=== PATIENT | male | born 1985 | race Caucasian/White ===

== ENCOUNTER 2020-10-28 17:47 | Emergency (ER) | payer BC, SELFPAY ==
[2020-10-28 18:20] VITALS: BP 138/95; PULSE 104; RESP 20; TEMP 36.4; O2SAT 100
[2020-10-28 19:33] VITALS: BP 142/98; PULSE 112; RESP 18; TEMP 36.7; O2SAT 100
--- NOTE | 2020-10-28 19:45 | ED.GENADULT ---
HPI - General Adult General Chief complaint: Wound/Laceration Stated complaint: forearm lac Time Seen by Provider: 10/28/20 19:42 History of Present Illness HPI narrative: Patient is a otherwise healthy 35-year-old male who comes to the emergency room today complaining of a laceration to the Distal ulnar left forearm. Patient reports that just prior to arrival he was working on a car when his hand slipped and a piece of metal punctured his left forearm. Patient reports that he immediately came to the emergency room. He denies any numbness or tingling. He is able to move his left hand and wrist without difficulty and full range of motion. Denies any pulsatile/squirting bleeding. He is not on any blood thinners. He thinks last tetanus was 2 years ago but he is not for sure. No other symptoms or concerns. Says it is not possible for any piece of the car to be in his arm. Related Data Allergies Allergy/AdvReac Type Severity Reaction Status Date / Time No Known Allergies Allergy Unverified 10/21/17 18:18 Review of Systems Constitutional: Constitutional: Reports as per HPI, Denies fever(s), Denies night sweats and Denies weakness Cardiovascular: Cardiovascular: Denies chest pain, Denies edema, Denies leg edema, Denies dyspnea and Denies orthopnea Respiratory: Respiratory: Denies cough and Denies dyspnea Gastrointestinal: Gastrointestinal: Denies abdominal pain, Denies constipation, Denies diarrhea, Denies nausea and Denies vomiting Musculoskeletal: Musculoskeletal: Denies abnormal gait, Denies back pain, Denies numbness and Denies tingling Integumentary/Breasts: Comments: See HPI Neurologic: Denies Abnormal speech present, Denies abnormal gait, Denies numbness, Denies tingling and Denies weakness Psychiatric: Psychiatric: Denies homicidal ideation and Denies suicidal ideation [facility] Family History Family History (Updated 02/16/16 @ 23:21 by DOCTOR UNKNOWN) Mother Patient's mother is in good health Father Patient's father is in good health Sibling Patient's sister is in good health Patient's brother is in good health Social History Social History Smoking status: Current every day smoker Gender identity (if verbalized by the patient): Female Exam Const: General: cooperative, healthy appearing, comfortable, no acute distress, well developed, alert, awake and Physically active Orientation/consciousness: patient oriented x3 HENMT: Head: normal to inspection, normocephalic and atraumatic Ears: external ears normal General nose exam: Normal external nose present Eyes: Pupils: Equal, round and reactive pupils present EOM: EOMs intact bilaterally Neck: Neck: normal visual inspection Chest: Chest palpation & inspection: normal inspection of the chest and no tenderness Resp: Effort & Inspection: normal respiratory effort and able to speak in complete sentences Auscultation: clear to auscultation bilaterally Cardio: Rate: regular rate Rhythm: regular rhythm GI: Inspection: normal to inspection GI Palp: No abdominal tenderness : General: Yes no CVA tenderness Back/Spine/Pelvis: Back: no CVA tenderness Skin: General skin exam: normal color and no rashes or lesions noted Lesions: no lesions Other: Distal ulnar aspect left forearm approximately 5 cm proximal to the wrist there is a vertical laceration that is approximately 3 cm in length. Bleeding is controlled. No foreign bodies. Range of motion and strength in left hand and wrist, neurovascular intact throughout. Neuro: General: patient oriented x3, no focal motor deficits and CN's II-XI intact bilaterally Cranial nerves: Yes Equal, round and reactive pupils present Speech: No Abnormal speech present Extrem: General: normal to inspection and full ROM Psych: Appearance: grossly normal and well kempt Mental Status: mental status grossly normal Speech and movement: Normal speech and movement present Affect: normal affect Thought process: No
[2020-10-28] MEDS: TETANUS,DIPHTHERIA,AC PERTUSSIS ADULT (0.5 ML) BOOSTRIX IM (21:40)
== END 2020-10-28 21:43 | disposition home or self-care (01) ==
PROVIDERS: Emergency Provider Emergency Medicine
DX: S51.812A Laceration without foreign body of left forearm, initial encounter (principal); F17.200 Nicotine dependence, unspecified, uncomplicated; W26.8XXA Contact with other sharp object(s), not elsewhere classified, initial encounter; Z23 Encounter for immunization
CPT/HCPCS: 12002; 90471; 90715; 99283

== ENCOUNTER 2023-08-17 16:19 | Emergency (ER) | payer OTHER, MEDICAID, SELFPAY ==
[2023-08-17 16:42] VITALS: BP 142/84; PULSE 89; RESP 20; TEMP 36.6; O2SAT 100
== END 2023-08-17 22:23 | disposition left against medical advice (07) ==
LOC: ANHED 21:28
DX: R10.9 Unspecified abdominal pain (principal)
CPT/HCPCS: 99199

== ENCOUNTER 2025-06-20 09:32 | Emergency (ER) | payer SELFPAY ==
--- NOTE | ~2025-06-20 | XR_ITS ---
XR elbow LT min 3V 06/20/2025 11:07 INDICATION: Left elbow pain PROCEDURE: 4 views left elbow COMPARISON: No prior studies for comparison. FINDINGS: Fracture, dislocation or subluxation is not identified. The soft tissues appear within normal limits. No foreign bodies are identified. IMPRESSION: 1: NO ACUTE BONE OR JOINT ABNORMALITY IDENTIFIED. Reviewed, dictated and finalized at location I. 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
--- NOTE | ~2025-06-20 | CT_ITS ---
EXAMINATION: CT elbow LT w con DATE: 06/20/2025 12:35 INDICATION: Left elbow infection from needlestick TECHNIQUE: High resolution computed tomography (CT) of the left elbow was performed with 100 mL Omnipaque-350 intravenous contrast. Additional sagittal and coronal reconstructions were performed. Automated exposure control and iterative reconstruction technique were employed. The dose-length product was 512.54 mGy-cm. COMPARISON: None FINDINGS: Bone alignment is normal. No fractures. No cortical erosions or periosteal reaction to suggest ostomy myelitis. No joint effusion. Gas and fluid within a small peripheral enhancing abscess is subcutaneous tissues at the left antecubital fossa. The abscess measures 3.0 cm in length and 12 x 10 mm in max imal transaxial dimensions. The abscess appears centered along the left cephalic vein likely secondary to thrombophlebitis related to reported needlestick. There appears be disruption of the posterior radial wall of the abscess with minimal amount of nonloculated fluid and gas in the deep subcutaneous fat along the anterior margin of the brachial radialis muscle is mild hyperemia along the underlying anterior margin of the brachioradialis muscle without deeper abscess or gas within the muscular compartments. There is thrombus extending along the more distal left cephalic and intermediate (median) antebrachial veins. There is additional occlusion/thrombosis of the left radial vein in the mid forearm. IMPRESSION: 1. 3.0 x 1.2 x 1.0 cm gas and fluid containing abscess at the antecubital fossa likely arising from a cephalic vein thrombophlebitis related to reported needlestick. Reviewed, dictated and finalized at location A. DITER SERVICE ORDER IMPRESSION: 1. 3.0 x 1.2 x 1.0 cm gas and fluid containing abscess at the antecubital fossa likely arising from a cephalic vein thrombophlebitis related to reported needl estick.
[2025-06-20 09:34] VITALS: BP 135/97; PULSE 118; RESP 16; TEMP 36.4; O2SAT 100
--- NOTE | 2025-06-20 11:11 | ED_ITS ---
HPI - General Adult General Chief complaint: Extremity Problem,Nontraumatic <IRAIS Rodriguez - Last Filed: 06/20/25 18:34> Stated complaint: abcess to left arm <IRAIS Rodriguez Last Filed: 06/20/25 18:34> Time Seen by Provider: 06/20/25 10:30 <IRAIS Rodriguez Last Filed: 06/20/25 18:34> History of Present Illness HPI narrative: 39-year-old male presenting after a needlestick that occurred 3 days ago in his right AC. Patient reports he is a methamphetamine user and that the needle was on room air. He reports subjective fevers/chills as of today as well as pain extending toward the wrist and the shoulder. Denies numbness/tingling. <IRAIS Rodriguez Last Filed: 06/20/25 18:34> Related Data Allergies/adverse reactions: Allergies Allergy/AdvReac Type Severity Reaction Status Date / Time No Known Allergies Allergy Verified 06/20/25 09:38 <IRAIS Rodriguez Last Filed: 06/20/25 18:34> Review of Systems 2 Review of Systems: All systems reviewed & are unremarkable except as noted in HPI and below <IRAIS Rodriguez Last Filed: 06/20/25 18:34> [facility] Family History Family History: Family History (Updated 02/16/16 @ 23:21 by DOCTOR UNKNOWN) Mother Patient's mother is in good health Father Patient's father is in good health Sibling Patient's sister is in good health Patient's brother is in good health <IRAIS Rodriguez Last Filed: 06/20/25 18:34> Social History Social History: Social History Smoking status: Current every day smoker Gender identity (if verbalized by the patient): Female <IRAIS Rodriguez Last Filed: 06/20/25 18:34> Exam 2 Narrative: GENERAL: No acute distress. HEAD: Normocephalic, atraumatic. EYES: PERRLA and EOMI. ENT: Nares clear, no rhinorrhea or epistaxis. Mucous membranes moist. Oropharynx without tonsillar hypertrophy exudate or other lesions. Bilateral TMs pearly mann non-bulging NECK: Supple. No adenopathy or masses. No carotid bruits or JVD CHEST: Clear to auscultation. No respiratory distress. No wheezes rales or rhonchi HEART: Regular rhythm, mild tachycardia. No murmur heard. Normal peripheral pulses. ABDOMEN: Soft, nontender, nondistended, normal active bowel sounds. EXTREMITIES: L elbow ROM slightly limited. L elbow AC region with a palpable, firm, tender, circular area approximately 2x2 cm, extending superiorly and inferiorly, with overlying erythema. 5/5 strength. SKIN: Warm, dry, no rash. NEURO: No focal deficits. Alert and oriented x3. 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 Patient is IV drug user, bedside ultrasound performed by myself and PA does show abscess unfortunately with vascular involvement, therefore I do not feel comfortable draining this and do feel he needs vascular surgery. He is transferred and accepted at [facility] <Kalee Berrios MD - Last Filed: 06/20/25 18:50> Vital Signs Vital signs: Vital Signs Temperature 97.5 F L 06/20/25 09:34 Pulse Rate 118 H 06/20/25 09:34 Respiratory Rate 16 06/20/25 09:34 Blood Pressure 135/97 H 06/20/25 09:34 Pulse Oximetry 100 06/20/25 09:34 Oxygen Delivery Room Air 06/20/25 09:34 Temperature 97.5 F L 06/20/25 18:09 Pulse Rate 90 06/20/25 18:09 Respiratory Rate 16 06/20/25 18:09 Blood Pressure 128/97 H 06/20/25 18:09 Pulse Oximetry 100 06/20/25 18:09 Oxygen Delivery Room Air 06/20/25 09:34 <IRAIS Rodriguez - Last Filed: 06/20/25 18:34> Vital Signs Temperature 97.5 F L 06/20/25 09:34 Pulse Rate 118 H 06/20/25 09:34 Respiratory Rate 16 06/20/25 09:34 Blood Pressure 135/97 H 06/20/25 09:34 Pulse Oximetry 100 06/20/25 09:34 Oxygen Delivery Room Air 06/20/25 09:34 Temperature 97.5 F L 06/20/25 18:09 Pulse Rate 90 06/20/25 18:09 Respiratory Rate 16 06/20/25 18:09 Blood Pressure 128/97 H 06/20/25 18:09 Pulse Oximetry 100 06/20/25 18:09 Oxygen Delivery Room Air 06/20/25 09:34 <Kalee Berrios MD - Last Filed: 06/20/25 18:50> Medical Decision Making MDM Narrative Medical decision making narrative: 39-year-old male presenting after a needlestick that occurred 3 days ago in his right AC. Patient reports he is a methamphetamine user and that the needle was on room air. He reports subjective fevers/chills as of today as well as pain extending toward the wrist and the shoulder. Denies numbness/tingling. Upon my initial assessment patient appears nontoxic with infectious findings to his left elbow AC region consistent with localized abscess secondary to recent needlestick. No fluctuance appreciated at this time. X-ray demonstrates no leftover foreign bodies. CT demonstrates a 3.0 x 1.2 x 1.0 cm gas and fluid containing abscess at the antecubital fossa likely arising from a cephalic vein thrombophlebitis related to reported needlestick. Bedside US corroborated these findings. Began vancomycin. Labs demonstrate mild leukocytosis as 13.8 and a CRP elevated at 7.8. Other labs WNL. Blood cultures pending. Patient was tachycardic in triage at 118 but sat around 98 during my initial assessment and was afebrile. On reevaluation patient is mildly diaphoretic endorsing generalized malaise. Initially spoke with [facility] vascular surgery who then advised contacting general surgery. General surgeon Dr. Ramos through [facility] accepted the patient. Discussed with hospitalist Dr. Dwyer patient presentation and workup. Agrees with transfer and admission at this time. Patient agrees with discussion and after shared medical decision making agrees with plan of care. All questions were answered to the patient's satisfaction. Pending transfer. <IRAIS Rodriguez - Last Filed: 06/20/25 18:34> Medical Records Medical records reviewed: Yes I reviewed the external patient's medical records. <IRAIS Rodriguez - Last Filed: 06/20/25 18:34> Vital Signs Vital Signs: Vital Signs Temperature 97.5 F L 06/20/25 09:34 Pulse Rate 118 H 06/20/25 09:34 Respiratory Rate 16 06/20/25 09:34 Blood Pressure 135/97 H 06/20/25 09:34 Pulse Oximetry 100 06/20/25 09:34 Oxygen Delivery Room Air 06/20/25 09:34 Temperature 97.5 F L 06/20/25 18:09 Pulse Rate 90 06/20/25 18:09 Respiratory Rate 16 06/20/25 18:09 Blood Pressure 128/97 H 06/20/25 18:09 Pulse Oximetry 100 06/20/25 18:09 Oxygen Delivery Room Air 06/20/25 09:34 <IRAIS Rodriguez - Last Filed: 06/20/25 18:34> Vital Signs Temperature 97.5 F L 06/20/25 09:34 Pulse Rate 118 H 06/20/25 09:34 Respiratory Rate 16 06/20/25 09:34 Blood Pressure 135/97 H 06/20/25 09:34 Pulse Oximetry 100 06/20/25 09:34 Oxygen Delivery Room Air 06/20/25 09:34 Temperature 97.5 F L 06/20/25 18:09 Pulse Rate 90 06/20/25 18:09 Respiratory Rate 16 06/20/25 18:09 Blood Pressure 128/97 H 06/20/25 18:09 Pulse Oximetry 100 06/20/25 18:09 Oxygen Delivery Room Air 06/20/25 09:34 <Kalee Berrios MD - Last Filed: 06/20/25 18:50> Lab Data Lab results reviewed: Yes I reviewed the patient's lab results. <IRAIS Rodriguez - Last Filed: 06/20/25 18:34> Result diagrams: 06/20/25 11:11 06/20/25 11:11 <IRAIS Rodriguez - Last Filed: 06/20/25 18:34> Labs: Lab Results 12/01/25 12/01/25 Range/Units 11:11 13:52 WBC 13.8 H (4.5-10.0) K/mm3 RBC 5.41 (4.6-6.20) M/mm3 Hgb 16.3 (14.0-18.0) g/dL Hct 48.4 (42.0-52.0) % MCV 89.5 (80-100) fl MCH 30.1 (26-34) pg MCHC 33.7 (32-36) g/dl RDW 13.9 (11.5-14.5) % Plt Count 239 (150-375) k/mm3 MPV 9.8 (7.4-10.4) fl Immature Gran % (Auto) 0.6 H (0-0.5) % Neut % (Auto) 74.7 H (45.5-73.1) % Lymph % (Auto) 10.4 L (18.3-44.2) % [place] % (Auto) 13.5 H (2.6-8.5) % Eos % (Auto) 0.4 (0-4.4) % Baso % (Auto) 0.4 (0.2-1.2) % Lymph # (Auto) 1.44 (0.9-3.2) K/mm3 [place] # (Auto) 1.9 H (0.1-0.6) K/mm3 Eos # (Auto) 0.1 (0-0.3) K/mm3 Baso # (Auto) 0.1 (0.0-0.1) K/mm3 Abs Immat Gran (auto) 0.08 H (0.00-0.031) K/mm3 Absolute Neuts (auto) 10.3 H (1.3-6.7) K/mm3 Absolute Nucleated RBC 0.000 (0.0-0.012) K/mm3 Nucleated RBC % 0.0 (0.0-0.2) % PT 13.3 (11.1-14.7) Seconds INR 1.0 APTT 26.7 (22.3-36.8) Seconds Sodium 131 L (137-145) mmol/L Potassium 4.0 (3.4-5.0) mmol/L Chloride 98 (98-107) mmol/L Carbon Dioxide 27 (22-30) mmol/L Anion Gap 6 (4-12) mmol/L BUN 10 (9-20) mg/dL Creatinine 0.95 (0.7-1.3) mg/dL Estim Creat Clear Calc 97 ml/min Estimated GFR > 60 (59 - ) Glucose 105 (65-110) mg/dL Lactic Acid 1.4 (0.7-2.0) mmol/L Calcium 9.1 (8.4-10.2) mg/dL Total Bilirubin 1.0 (0.2-1.3) mg/dL AST 34 (17-59) U/L ALT 24 (6-50) U/L Alkaline Phosphatase 111 (38-126) U/L C-Reactive Protein 7.8 H (<1.0) mg/dL Total Protein 8.4 H (6.3-8.2) g/dL Albumin 4.4 (3.5-5.1) g/dL <IRAIS Rodriguez - Last Filed: 06/20/25 18:34> Lab Results 06/20/25 06/20/25 Range/Units 11:11 13:52 WBC 13.8 H (4.5-10.0) K/mm3 RBC 5.41 (4.6-6.20) M/mm3 Hgb 16.3 (14.0-18.0) g/dL Hct 48.4 (42.0-52.0) % MCV 89.5 (80-100) fl MCH 30.1 (26-34) pg MCHC 33.7 (32-36) g/dl RDW 13.9 (11.5-14.5) % Plt Count 239 (150-375) k/mm3 MPV 9.8 (7.4-10.4) fl Immature Gran % (Auto) 0.6 H (0-0.5) % Neut % (Auto) 74.7 H (45.5-73.1) % Lymph % (Auto) 10.4 L (18.3-44.2) % [place] % (Auto) 13.5 H (2.6-8.5) % Eos % (Auto) 0.4 (0-4.4) % Baso % (Auto) 0.4 (0.2-1.2) % Lymph # (Auto) 1.44 (0.9-3.2) K/mm3 [place] # (Auto) 1.9 H (0.1-0.6) K/mm3 Eos # (Auto) 0.1 (0-0.3) K/mm3 Baso # (Auto) 0.1 (0.0-0.1) K/mm3 Abs Immat Gran (auto) 0.08 H (0.00-0.031) K/mm3 Absolute Neuts (auto) 10.3 H (1.3-6.7) K/mm3 Absolute Nucleated RBC 0.000 (0.0-0.012) K/mm3 Nucleated RBC % 0.0 (0.0-0.2) % PT 13.3 (11.1-14.7) Seconds INR 1.0 APTT 26.7 (22.3-36.8) Seconds Sodium 131 L (137-145) mmol/L Potassium 4.0 (3.4-5.0) mmol/L Chloride 98 (98-107) mmol/L Carbon Dioxide 27 (22-30) mmol/L Anion Gap 6 (4-12) mmol/L BUN 10 (9-20) mg/dL Creatinine 0.95 (0.7-1.3) mg/dL Estim Creat Clear Calc 97 ml/min Estimated GFR > 60 (59 - ) Glucose 105 (65-110) mg/dL Lactic Acid 1.4 (0.7-2.0) mmol/L Calcium 9.1 (8.4-10.2) mg/dL Total Bilirubin 1.0 (0.2-1.3) mg/dL AST 34 (17-59) U/L ALT 24 (6-50) U/L Alkaline Phosphatase 111 (38-126) U/L C-Reactive Protein 7.8 H (<1.0) mg/dL Total Protein 8.4 H (6.3-8.2) g/dL Albumin 4.4 (3.5-5.1) g/dL <Kalee Berrios MD - Last Filed: 06/20/25 18:50> Imaging Data Attestation: I personally reviewed and interpreted this imaging study as follows: < IRAIS Rodriguez - Last Filed: 06/20/25 18:34> Radiologist's impression: ITS Impressions Elbow X-Ray 06/20/25 11:13 IMPRESSION: 1: NO ACUTE BONE OR JOINT ABNORMALITY IDENTIFIED. Elbow CT 06/20/25 12:37 IMPRESSION: 1. 3.0 x 1.2 x 1.0 cm gas and fluid containing abscess at the antecubital fossa likely arising from a cephalic vein thrombophlebitis related to reported needlestick. <IRAIS Rodriguez - Last Filed: 06/20/25 18:34> Discharge Plan Discharge Clinical Impression: Abscess of arm <IRAIS Rodriguez Last Filed: 06/20/25 18:34> Patient Disposition: Acute Care Hospital <IRAIS Rodriguez Last Filed: 06/20/25 18:34> Condition: Stable <IRAIS Rodriguez - Last Filed: 06/20/25 18:34> Patient Language: [place] Citizen <IRAIS Rodriguez - Last Filed: 06/20/25 18:34> Prescriptions: No Action cephalexin 500 mg capsule 500 mg PO Q8H Qty: 15 0RF <IRAIS Rodriguez - Last Filed: 06/20/25 18:34> Follow-up/Referrals: PHYSICIAN,RECYCLE COORDINATOR [Primary Care Provider, Internal Medicine] <IRAIS Rodriguez Last Filed: 06/20/25 18:34>
[2025-06-20] MEDS: ACETAMINOPHEN 500 MG TABLET 1000 MG PO (11:12)
[2025-06-20] MEDS: TETANUS,DIPHTHERIA,AC PERTUSSIS ADULT (0.5 ML) BOOSTRIX IM (11:12)
[2025-06-20 11:18] LABS: Hematocrit 48.4 % (42.0-52.0); Hemoglobin 16.3 g/dL (14.0-18.0); Immature Granulocyte Percent A 0.6 % (0-0.5); Lymphocytes Absolute Auto 1.44 K/mm3 (0.9-3.2); Mean Corpuscular HGB Conc 33.7 g/dl (32-36); Mean Corpuscular Hemoglobin 30.1 pg (26-34); Mean Corpuscular Volume 89.5 fl (80-100); Nucleated Red Blood Cells Absolute Auto 0.000 K/mm3 (0.0-0.012); Nucleated Red Blood Cells Perc 0.0 % (0.0-0.2); Platelet Count Result 239 k/mm3 (150-375); Red Blood Count 5.41 M/mm3 (4.6-6.20); White Blood Count 13.8 K/mm3 (4.5-10.0)
[2025-06-20 11:44] LABS: Alanine Aminotransferase 24 U/L (6-50); Albumin Level 4.4 g/dL (3.5-5.1); Alkaline Phosphatase 111 U/L (38-126); Anion Gap 6 mmol/L (4-12); Aspartate Amino Transferase 34 U/L (17-59); Bilirubin,Total 1.0 mg/dL (0.2-1.3); Blood Urea Nitrogen 10 mg/dL (9-20); CRP 7.8 mg/dL (<1.0); Calcium 9.1 mg/dL (8.4-10.2); Carbon Dioxide 27 mmol/L (22-30); Chloride 98 mmol/L (98-107); Estimated CRCL calculation 97 ml/min; Estimated Glomerular Filt Rate > 60; Glucose 105 mg/dL (65-110); Sodium 131 mmol/L (137-145); Total Protein 8.4 g/dL (6.3-8.2)
[2025-06-20 11:52] LABS: Potassium 4.0 mmol/L (3.4-5.0)
[2025-06-20 14:10] LABS: INR 1.0; Prothrombin Time 13.3 Seconds (11.1-14.7)
[2025-06-20 14:11] LABS: Partial Thromboplastin Time 26.7 Seconds (22.3-36.8)
[2025-06-20] MEDS: VANCOMYCIN 1,250 MG/NS 250 ML 1,250 MG/250 ML BAG 166.67 MG IVPB (14:30)
[2025-06-20] MEDS: VANCOMYCIN HCL 1,000 MG in SODIUM CHLORIDE 0.9% IV 250 ML 250 MG IVPB (16:51)
[2025-06-20 18:09] VITALS: BP 128/97; PULSE 90; RESP 16; TEMP 36.4; O2SAT 100
== END 2025-06-20 18:21 | disposition short-term general hospital (02) ==
DX: L02.413 Cutaneous abscess of right upper limb (principal); W46.0XXA Contact with hypodermic needle, initial encounter; F15.90 Other stimulant use, unspecified, uncomplicated; Z23 Encounter for immunization
CPT/HCPCS: 36415; 73080; 73201; 80053; 83605; 85025; 85610; 85730; 86140; 90471; 90715; 96365; 96366; 99285; A9270; J3373; J7050; Q9967